=== PATIENT | male | born 1965 | race African-American/Black ===

== ENCOUNTER 2022-05-02 00:04 | Emergency (ER) | payer MEDICAID ==
[~2022-05-02] VITALS: Ht 167.6 cm; Wt 86.4 kg
[~2022-05-02 00:04] MED LIST: ASPI81TA39 PO; FAMO-136 PO; INSLAN SQ; LISI10TA PO; METO25XL PO; PRAS10TA6 PO; SIMV-261 PO
[2022-05-02 00:45] LABS: HEMOGLOBIN 14.3 g/dL (13.5-17.5); MEAN CORPUSCULAR HGB CONC 33.2 G/dL (31.0-37.0); MONOCYTES # (AUTO) 0.7 K/uL (0.1-1.0); NEUTROPHILS # (AUTO) 3.6 K/uL (1.8-7.7)
[2022-05-02 00:49] LABS: BASOPHILS % (AUTO) 0.8 % (0.0-2.0); EOSINOPHILS % (AUTO) 1.8 % (1.0-6.0); LYMPHOCYTES # (AUTO) 3.1 K/uL (1.0-4.8); LYMPHOCYTES % (AUTO) 41.1 % (22.0-44.0); MEAN CORPUSCULAR HEMOGLOBIN 27.1 pg (26.0-34.0); MEAN CORPUSCULAR VOLUME 82 fL (80-100); MONOCYTES % (AUTO) 8.9 % (2.0-9.0); NEUTROPHILS % (AUTO) 47.4 % (40.0-70.0); PLATELET COUNT (AUTO) 271 K/uL (150-450); RED BLOOD CELL COUNT(AUTO) 5.25 MIL/uL (4.50-5.90); RED CELL DISTRIBUTION WIDTH 14.5 % (11.5-14.5)
[2022-05-02 00:54] LABS: ANION GAP 7 mmol/L (8-16); CALCIUM, TOTAL 9.5 mg/dL (8.8-10.5); CARBON DIOXIDE 28 mmol/L (22-29); CHLORIDE 104 mmol/L (98-107); CREATININE 1.03 mg/dL (0.60-1.30); GLUCOSE,RANDOM 168 mg/dL (70-110); POTASSIUM 3.6 mmol/L (3.5-5.1); SODIUM SERUM 139 mmol/L (136-145); UREA NITROGEN, BLOOD 8 mg/dL (7-18)
[2022-05-02 00:55] LABS: GLOMERULAR FILTR. RATE CALC > 60 mL/min (>60)
[2022-05-02 01:05] VITALS: BP 143/72
[2022-05-02] MEDS ORDERED: OMEP20 PO (01:10)
[2022-05-02 01:21] LABS: PLATELET MORPHOLOGY COMMENT LARGE PLTS PRESENT
== END 2022-05-02 01:19 | disposition home or self-care (01) ==
LOC: EMS 00:05
DX: K21.9 Gastro-esophageal reflux disease without esophagitis (principal); I25.10 Atherosclerotic heart disease of native coronary artery without angina pectoris; I10 Essential (primary) hypertension; E11.9 Type 2 diabetes mellitus without complications
CPT/HCPCS: 71045; 80048; 82962; 84484; 85025; 93005; 99285; 36415-L1; 36415-TC

== ENCOUNTER 2022-07-11 04:51 | Emergency (ER) | payer MEDICAID ==
[~2022-07-11] VITALS: Ht 167.6 cm; Wt 97.7 kg
[~2022-07-11 04:51] MED LIST changes: +OMEP20 PO
[2022-07-11 05:10] VITALS: BP 133/86
== END 2022-07-11 05:38 | disposition left against medical advice (07) ==
LOC: EMS 05:18
DX: R11.2 Nausea with vomiting, unspecified (principal); R10.9 Unspecified abdominal pain; Z53.21 Procedure and treatment not carried out due to patient leaving prior to being seen by health care provider
CPT/HCPCS: 99281; Z7502

== ENCOUNTER 2022-10-03 17:51 | Emergency (ER) | payer OTHER ==
[~2022-10-03] VITALS: Ht 167.6 cm; Wt 96.4 kg
[2022-10-03 18:25] VITALS: BP 157/77
[2022-10-03 21:16] LABS: GLUCOMETER DEV NAME(LOC) ERT.5; GLUCOSE,POINT OF CARE 164 MG/DL (70-110)
== END 2022-10-03 18:33 | disposition home or self-care (01) ==
LOC: EMS 17:55
DX: I10 Essential (primary) hypertension (principal); I25.10 Atherosclerotic heart disease of native coronary artery without angina pectoris; E11.9 Type 2 diabetes mellitus without complications
CPT/HCPCS: 82962; 99282

== ENCOUNTER 2023-03-15 05:31 | Emergency (ER) | payer OTHER ==
[~2023-03-15 05:31] MED LIST changes: -ASPI81TA39 PO
[2023-03-15 05:38] VITALS: BP 147/87; PULSE 78; RESP 19
== END 2023-03-15 05:43 | disposition home or self-care (01) ==
LOC: EMS 05:32
DX: Z01.30 Encounter for examination of blood pressure without abnormal findings (principal); Z53.21 Procedure and treatment not carried out due to patient leaving prior to being seen by health care provider
CPT/HCPCS: 99281; Z7502

== ENCOUNTER 2023-05-23 06:07 | Emergency (ER) | payer MEDICAID, OTHER ==
[~2023-05-23] VITALS: Ht 170.2 cm; Wt 89.0 kg
[2023-05-23 06:24] VITALS: BP 135/81; PULSE 78; RESP 16; TEMP 98.2
== END 2023-05-23 06:28 | disposition left against medical advice (07) ==
LOC: EMS 06:09
DX: I10 Essential (primary) hypertension (principal); Z53.21 Procedure and treatment not carried out due to patient leaving prior to being seen by health care provider
CPT/HCPCS: 99281; Z7502

== ENCOUNTER 2023-07-15 22:30 | Inpatient (IN) | payer MEDICAID ==
[~2023-07-15] VITALS: Ht 170.2 cm; Wt 95.5 kg
[2023-07-15] MEDS ORDERED: [UNRECOGNIZED DRUG - CODE] (22:39)
[2023-07-15] MEDS ORDERED: CLOP75TA32 PO (22:39)
[2023-07-15] MEDS ORDERED: [UNRECOGNIZED DRUG - CODE] (22:39)
[2023-07-15] MEDS ORDERED: INSU100V50 SQ (22:39)
[2023-07-15] MEDS ORDERED: BLOO-1672 (22:39)
[2023-07-15] MEDS ORDERED: ATOR40TA71 PO (22:39)
[2023-07-15] MEDS ORDERED: AMLO5TAB66 PO (22:39)
[2023-07-15] MEDS ORDERED: METF-445 PO (22:39)
[2023-07-15] MEDS ORDERED: [UNRECOGNIZED DRUG - CODE] IH (22:39)
[2023-07-15] MEDS ORDERED: LISI20TA24 PO (22:39)
[2023-07-15] MEDS ORDERED: METO25 PO (22:39)
[2023-07-15] MEDS ORDERED: FAMO20TA8 PO (22:39)
[2023-07-15 23:18] LABS: BASOPHILS % (AUTO) 0.8 % (0.0-2.0); EOSINOPHILS % (AUTO) 1.1 % (1.0-6.0); HEMATOCRIT 42.2 % (41-53); HEMOGLOBIN 13.8 g/dL (13.5-17.5); LYMPHOCYTES # (AUTO) 3.3 K/uL (1.0-4.8); LYMPHOCYTES % (AUTO) 42.8 % (22.0-44.0); MEAN CORPUSCULAR HEMOGLOBIN 26.9 pg (26.0-34.0); MEAN CORPUSCULAR HGB CONC 32.8 G/dL (31.0-37.0); MEAN CORPUSCULAR VOLUME 82 fL (80-100); MONOCYTES # (AUTO) 0.7 K/uL (0.1-1.0); MONOCYTES % (AUTO) 8.5 % (2.0-9.0); NEUTROPHILS # (AUTO) 3.6 K/uL (1.8-7.7); NEUTROPHILS % (AUTO) 46.8 % (40.0-70.0); PLATELET COUNT (AUTO) 258 K/uL (150-450); RED BLOOD CELL COUNT(AUTO) 5.13 MIL/uL (4.50-5.90); RED CELL DISTRIBUTION WIDTH 14.2 % (11.5-14.5); WHITE BLOOD COUNT (AUTO) 7.8 K/uL (4.5-11.0)
[2023-07-15 23:28] LABS: ANION GAP 7 mmol/L (8-16); CALCIUM, TOTAL 9.4 mg/dL (8.8-10.5); CARBON DIOXIDE 28 mmol/L (22-29); CHLORIDE 101 mmol/L (98-107); CREATININE 0.91 mg/dL (0.60-1.30); GLOMERULAR FILTR. RATE CALC > 60 mL/min (>60); GLUCOSE,RANDOM 163 mg/dL (70-110); SODIUM SERUM 136 mmol/L (136-145); UREA NITROGEN, BLOOD 11 mg/dL (7-18)
[2023-07-15 23:34] LABS: ALANINE AMINOTRANSFERASE 25 U/L (12-78); ALBUMIN 3.6 g/dL (3.4-5.0); ALKALINE PHOSPHATASE 64 U/L (46-116); ASPARTATE AMINOTRANSFERASE 11 U/L (15-37); BILIRUBIN,TOTAL 0.2 mg/dL (0.1-1.0); LIPASE 40 U/L (16-77); TOTAL PROTEIN, SERUM 7.5 g/dL (6.4-8.2)
[2023-07-15 23:35] LABS: TROPONIN I-HIGH SENSITIVITY 7 ng/L (<76)
[2023-07-16] MEDS: ASPIRIN 325 MG TABLET PO ONE (04:53)
[2023-07-16] MEDS: NITROGLYCERIN 2% (1 GM=INCH) OINTMENT PACKET TP ONE (04:53)
[2023-07-16 05:51] LABS: TROPONIN I-HIGH SENSITIVITY 7 ng/L (<76)
[2023-07-16] MEDS ORDERED: NITROGLYCERIN 0.4 MG SUBLINGUAL TABLET #25 SL PRN (09:45)
[2023-07-16] MEDS: CLOPIDOGREL BISULFATE 75 MG TABLET PO SCH (10:41)
[2023-07-16] MEDS: PANTOPRAZOLE SODIUM 40 MG DR TABLET PO SCH (10:41)
[2023-07-16 11:54] VITALS: BP 147/79; PULSE 60; RESP 18; TEMP 98.1
[2023-07-16 12:32] LABS: APPEARANCE,URINE CLEAR (CLEAR); BILIRUBIN,URINE NEGATIVE (NEGATIVE); COLOR,URINE COLORLESS (YELLOW); GLUCOSE, URINE (UA) NEGATIVE (NEGATIVE); KETONES,URINE NEGATIVE (NEGATIVE); LEUKOCYTE ESTERASE ,URINE NEGATIVE (NEGATIVE); NITRATE,URINE NEGATIVE (NEGATIVE); OCCULT BLOOD,URINE NEGATIVE (NEGATIVE); PROTEIN,URINE NEGATIVE (NEGATIVE); SPECIFIC GRAVITIY, URINE 1.009 (1.003-1.030); UROBILINOGEN,URINE <=1.0 mg/dL (<=1.0)
[2023-07-16 12:42] LABS: BACTERIA,URINE None Seen /HPF (None Seen); RBC,URINE None Seen /HPF (0-2); WBC,URINE None Seen /HPF (0-5)
[2023-07-16 14:53] LABS: TROPONIN I-HIGH SENSITIVITY 6 ng/L (<76)
[2023-07-16] MEDS ORDERED: BISACODYL 10 MG RECTAL RECTAL SUPPOSITORY PR PRN (15:30)
[2023-07-16] MEDS ORDERED: MAGNESIUM HYDROXIDE SUSPENSION 30 ML UDCUP PO PRN (15:30)
[2023-07-16] MEDS ORDERED: MORPHINE SULFATE 2 MG/ML SYRINGE IVP PRN (15:30)
[2023-07-16] MEDS ORDERED: ACETAMINOPHEN 325 MG TABLET PO PRN (15:30)
[2023-07-16] MEDS ORDERED: ONDANSETRON HCL 4 MG/2 ML VIAL IVP PRN (15:30)
[2023-07-16] MEDS ORDERED: DEXTROSE 50%-WATER 25 GM/50 ML SYRINGE IVP PRN (15:30)
[2023-07-16] MEDS ORDERED: HYDROCODONE/ACETAMINOPHEN 5-325 MG TABLET PO PRN (15:30)
[2023-07-16] MEDS ORDERED: ZOLPIDEM TARTRATE 5 MG TABLET PO PRN (15:30)
[2023-07-16] MEDS: HEPARIN SODIUM,PORCINE 5,000 UNITS/ML VIAL SQ SCH (16:00)
[2023-07-16 16:13] VITALS: BP 129/76; PULSE 63; RESP 18; TEMP 98.2
[2023-07-16 17:55] LABS: GLUCOMETER DEV NAME(LOC) 5N.2C; GLUCOSE,POINT OF CARE 115 MG/DL (70-110)
[2023-07-16 20:00] VITALS: BP 129/70; PULSE 65; RESP 20; TEMP 97; O2SAT 97
[2023-07-16] MEDS: INSULIN LISPRO 100 UNITS/ML SQ PRN (20:42)
[2023-07-16] MEDS: METOPROLOL TARTRATE 25 MG TABLET PO SCH (20:43)
[2023-07-16] MEDS: DOCUSATE SODIUM 100 MG CAPSULE PO SCH (20:44)
[2023-07-17 00:11] VITALS: BP 122/79; PULSE 56; RESP 20; TEMP 97.5
[2023-07-17 06:52] LABS: BASOPHILS % (AUTO) 0.5 % (0.0-2.0); EOSINOPHILS % (AUTO) 0.8 % (1.0-6.0); HEMOGLOBIN 14.1 g/dL (13.5-17.5); LYMPHOCYTES # (AUTO) 2.7 K/uL (1.0-4.8); LYMPHOCYTES % (AUTO) 42.9 % (22.0-44.0); MEAN CORPUSCULAR HEMOGLOBIN 27.1 pg (26.0-34.0); MEAN CORPUSCULAR HGB CONC 33.6 G/dL (31.0-37.0); MEAN CORPUSCULAR VOLUME 81 fL (80-100); MONOCYTES # (AUTO) 0.5 K/uL (0.1-1.0); MONOCYTES % (AUTO) 8.7 % (2.0-9.0); NEUTROPHILS # (AUTO) 2.9 K/uL (1.8-7.7); NEUTROPHILS % (AUTO) 47.1 % (40.0-70.0); PLATELET COUNT (AUTO) 279 K/uL (150-450); WHITE BLOOD COUNT (AUTO) 6.2 K/uL (4.5-11.0)
[2023-07-17 07:05] LABS: GLUCOMETER DEV NAME(LOC) 5S.2C; GLUCOSE,POINT OF CARE 150 MG/DL (70-110)
[2023-07-17 07:09] LABS: ANION GAP 11 mmol/L (8-16); CALCIUM, TOTAL 9.2 mg/dL (8.8-10.5); CARBON DIOXIDE 25 mmol/L (22-29); CHLORIDE 102 mmol/L (98-107); CREATININE 0.93 mg/dL (0.60-1.30); GLOMERULAR FILTR. RATE CALC > 60 mL/min (>60); GLUCOSE,RANDOM 136 mg/dL (70-110); SODIUM SERUM 138 mmol/L (136-145); UREA NITROGEN, BLOOD 9 mg/dL (7-18)
[2023-07-17 07:23] VITALS: BP 124/74; RESP 18; TEMP 97.6
[2023-07-17 08:00] LABS: PLATELET MORPHOLOGY COMMENT GIANT PLTS PRESENT
[2023-07-17] MEDS: ATORVASTATIN CALCIUM 40 MG TABLET PO SCH (08:42)
[2023-07-17] MEDS: ASPIRIN 81 MG DR TABLET PO SCH (08:43)
[2023-07-17] MEDS ORDERED: PANT-31 PO (11:30)
[2023-07-17 12:16] LABS: GLUCOMETER DEV NAME(LOC) 5N.2C; GLUCOSE,POINT OF CARE 128 MG/DL (70-110)
== END 2023-07-17 12:50 | disposition home or self-care (01) | DRG 243 ==
LOC: EMS 22:30 → 5N 07-16 11:04
PROVIDERS: ADMIT Hospitalist; ATTEND Hospitalist
DX: K21.9 Gastro-esophageal reflux disease without esophagitis (principal); E11.65 Type 2 diabetes mellitus with hyperglycemia; I25.10 Atherosclerotic heart disease of native coronary artery without angina pectoris; E78.5 Hyperlipidemia, unspecified; I10 Essential (primary) hypertension; Z95.5 Presence of coronary angioplasty implant and graft; I25.2 Old myocardial infarction; Z79.02 Long term (current) use of antithrombotics/antiplatelets; Z79.899 Other long term (current) drug therapy; Z63.4 Disappearance and death of family member; Z82.49 Family history of ischemic heart disease and other diseases of the circulatory system
CPT/HCPCS: 71045; 76700; 80048; 80053; 81001; 82962; 83605; 83690; 84484; 85025; 93005; 93306; 99285; J1644; 36415-L1; 36415-TC

== ENCOUNTER 2024-03-13 04:42 | Emergency (ER) | payer MEDICAID ==
[~2024-03-13] VITALS: Ht 167.6 cm; Wt 106.0 kg
[~2024-03-13 04:42] MED LIST changes: +AMLO5TAB66 PO; +ATOR40TA71 PO; +BLOO-1672; +CLOP75TA32 PO; -FAMO-136 PO; +FAMO20TA8 PO; -INSLAN SQ; +INSU100V50 SQ; -LISI10TA PO; +LISI20TA24 PO; +METF-445 PO; +METO25 PO; -METO25XL PO; -OMEP20 PO; +PANT-31 PO; -PRAS10TA6 PO; -SIMV-261 PO; +[UNRECOGNIZED DRUG - CODE]; +[UNRECOGNIZED DRUG - CODE]; +[UNRECOGNIZED DRUG - CODE] IH
[2024-03-13 04:50] VITALS: BP 140/78; PULSE 65; RESP 16; TEMP 98; O2SAT 99
== END 2024-03-13 04:59 | disposition home or self-care (01) ==
LOC: EMS 04:43
DX: I10 Essential (primary) hypertension (principal); E11.9 Type 2 diabetes mellitus without complications; K21.9 Gastro-esophageal reflux disease without esophagitis; I25.10 Atherosclerotic heart disease of native coronary artery without angina pectoris; Z79.02 Long term (current) use of antithrombotics/antiplatelets; Z79.84 Long term (current) use of oral hypoglycemic drugs; Z79.899 Other long term (current) drug therapy
CPT/HCPCS: 99281; Z7502

== ENCOUNTER 2024-11-16 06:19 | Emergency (ER) | payer MEDICAID ==
[~2024-11-16] VITALS: Ht 175.3 cm; Wt 113.0 kg
[2024-11-16 06:46] VITALS: BP 158/67; PULSE 83; RESP 12; TEMP 98.2; O2SAT 100
== END 2024-11-16 06:46 | disposition home or self-care (01) ==
LOC: EMS 06:22
DX: Z00.8 Encounter for other general examination (principal); Z53.21 Procedure and treatment not carried out due to patient leaving prior to being seen by health care provider

== ENCOUNTER 2025-04-04 09:28 | Emergency (ER) | payer MEDICAID ==
[~2025-04-04] VITALS: Ht 167.6 cm; Wt 97.0 kg
[2025-04-04 09:34] VITALS: TEMP 97.7
[2025-04-04 10:30] LABS: CALCIUM, TOTAL 9.2 mg/dL (8.8-10.5); CREATININE 1.06 mg/dL (0.60-1.30); GLOMERULAR FILTR. RATE CALC > 60 mL/min (>60); GLUCOSE,RANDOM 238 mg/dL (70-110); SODIUM SERUM 138 mmol/L (136-145); UREA NITROGEN, BLOOD 9 mg/dL (7-18)
[2025-04-04 10:39] LABS: TROPONIN I-HIGH SENSITIVITY 7 ng/L (<76)
[2025-04-04] MEDS: FAMOTIDINE 20 MG TABLET PO ONE (11:05)
[2025-04-04] MEDS: CALCIUM CARBONATE 500 MG CHEWABLE TABLET CHEW ONE (11:11)
[2025-04-04] MEDS ORDERED: FAMO20 PO (13:14)
[2025-04-04 13:29] VITALS: BP 144/64; PULSE 67; RESP 18; O2SAT 99
== END 2025-04-04 13:31 | disposition home or self-care (01) ==
LOC: EMS 09:28
DX: K21.9 Gastro-esophageal reflux disease without esophagitis (principal); E11.9 Type 2 diabetes mellitus without complications; I10 Essential (primary) hypertension; I25.10 Atherosclerotic heart disease of native coronary artery without angina pectoris; R10.13 Epigastric pain; Z79.02 Long term (current) use of antithrombotics/antiplatelets; Z79.899 Other long term (current) drug therapy
CPT/HCPCS: 80048; 84484; 93005; 99284